=== PATIENT | female | born 1960 | race Caucasian/White ===

== ENCOUNTER 2018-09-17 06:50 | Emergency (ER) | payer BC ==
[~2018-09-17] VITALS: Ht 167.6 cm; Wt 90.7 kg
[2018-09-17] MEDS ORDERED: SUMA100T PO (07:03)
[2018-09-17] MEDS ORDERED: DIVA500T4 PO (07:03)
[2018-09-17] MEDS ORDERED: AMLO10TA4 PO (07:03)
[2018-09-17] MEDS ORDERED: GABA-536 PO (07:03)
[2018-09-17] MEDS ORDERED: LOSA100T31 PO (07:03)
[2018-09-17] MEDS ORDERED: PROP160C2 PO (07:03)
[2018-09-17] MEDS ORDERED: GABA800T11 PO (07:03)
[2018-09-17] MEDS ORDERED: FUROSEMIDE 20 MG TABLET ONE (07:24)
--- NOTE | 2018-09-17 07:28 | NUR ---
Patient discharged to home in stable conditon & steady gait. Written and verbal after care instructions given to patient. Patient verbalizes understanding of instructions.
[2018-09-17] MEDS ORDERED: FUROSEMIDE 20 MG TABLET PO ONE (07:30)
== END 2018-09-17 07:28 | disposition home or self-care (01) ==
LOC: ER 07:10
DX: M54.9 Dorsalgia, unspecified (principal); R60.9 Edema, unspecified; K21.9 Gastro-esophageal reflux disease without esophagitis; E78.5 Hyperlipidemia, unspecified; Z88.8 Allergy status to other drugs, medicaments and biological substances; Z79.899 Other long term (current) drug therapy
CPT/HCPCS: A4663

== ENCOUNTER 2018-09-29 09:35 | Emergency (ER) | payer BC ==
[~2018-09-29] VITALS: Ht 172.7 cm; Wt 95.3 kg
[~2018-09-29 09:35] MED LIST: AMLO10TA4 PO; DIVA500T4 PO; GABA-536 PO; GABA800T11 PO; LOSA100T31 PO; PROP160C2 PO; SUMA100T PO
[2018-09-29] MEDS ORDERED: diphenhydrAMINE 50 MG/1 ML VIAL IM ONE (10:00)
[2018-09-29] MEDS ORDERED: QUET400T PO (10:03)
[2018-09-29] MEDS ORDERED: PRAM0.253 PO (10:03)
[2018-09-29] MEDS ORDERED: THIA100T13 PO (10:03)
[2018-09-29] MEDS ORDERED: TRAZ-182 PO (10:03)
[2018-09-29] MEDS ORDERED: DEXT1CAP3 PO (10:03)
[2018-09-29] MEDS ORDERED: ALBU18HF2 IH (10:03)
[2018-09-29] MEDS ORDERED: FURO-152 PO (10:03)
[2018-09-29] MEDS ORDERED: VITA1TAB20 PO (10:03)
[2018-09-29] MEDS ORDERED: LORA1TAB PO (10:03)
[2018-09-29] MEDS ORDERED: diphenhydrAMINE 50 MG/1 ML VIAL ONE (10:03)
[2018-09-29] MEDS ORDERED: CHOL10002 PO (10:03)
[2018-09-29 10:22] LABS: BASOPHILS % (AUTO) 0.4 % (0.0-2.0); EOSINOPHILS # (AUTO) 0.2 K/uL (0.0-0.7); EOSINOPHILS % (AUTO) 3.5 % (0.0-7.0); HEMATOCRIT 37.1 % (31.2-41.9); HEMOGLOBIN 12.3 g/dL (10.9-14.3); LYMPHOCYTES # (AUTO) 1.8 K/uL (20.0-40.0); LYMPHOCYTES % (AUTO) 30.2 % (20.5-51.5); MEAN CORPUSCULAR HEMOGLOBIN 27.8 uug (24.7-32.8); MEAN CORPUSCULAR HGB CONC 33 g/dL (32.3-35.6); MEAN CORPUSCULAR VOLUME 83.7 fL (75.5-95.3); MONOCYTES # (AUTO) 0.6 K/uL (2.0-10.0); MONOCYTES % (AUTO) 10.9 % (0.0-11.0); NEUTROPHILS # (AUTO) 3.2 K/uL (1.8-8.9); PLATELET COUNT (AUTO) 184 K/uL (179-408); RED BLOOD CELL COUNT(AUTO) 4.44 MIL/uL (3.63-4.92); WHITE BLOOD COUNT (AUTO) 5.8 K/uL (3.8-11.8)
--- NOTE | 2018-09-29 10:22 | NUR ---
PATIENT IS AWAKE AND ALERT. PLACED ON A MONITOR. C/O LEG CRAMPS
[2018-09-29 10:31] LABS: CREATININE 0.8 mg/dL (0.6-1.3); POTASSIUM 3.1 mmol/L (3.5-5.1)
[2018-09-29 10:37] LABS: BILIRUBIN,TOTAL 0.5 mg/dL (0.2-1.0); TOTAL PROTEIN, SERUM 6.4 g/dL (6.4-8.2)
[2018-09-29] MEDS ORDERED: POTASSIUM BICARBONATE/CIT AC 25 MEQ TABLET.EFF PO ONE (10:45)
[2018-09-29] MEDS ORDERED: POTASSIUM BICARBONATE/CIT AC 25 MEQ TABLET.EFF ONE (10:45)
[2018-09-29] MEDS ORDERED: HYDROCODONE/APAP 5-325MG TABLET ONE (11:07)
[2018-09-29] MEDS ORDERED: HYDROCODONE/APAP 5-325MG TABLET PO ONE (11:15)
--- NOTE | 2018-09-29 12:01 | NUR ---
PATIENT STATES PAIN HAS DIMINISHED. PATIENT STATES SHE UNDERSTANDS THAT SHE CANNOT DRIVE WHILEO N BENADRYL AND NORCO (AND SIMILAR MEDS). SHE STATES SHE HAS [facility] AND WILL CALL [facility]. DC, RX (INCLUDING ALL PRECAUTIONS) AND FOLLOW UP INSTRUCTIONS GIVEN AND EXPLAINED TO PATIENT WHO STATES SHE UNDERSTANDS ALL INSTRUCTIONS.
[2018-09-29 12:03] VITALS: BP 138/84
== END 2018-09-29 12:04 | disposition home or self-care (01) ==
LOC: ER 09:35
DX: M79.604 Pain in right leg (principal); M79.605 Pain in left leg; M79.601 Pain in right arm; M79.602 Pain in left arm; G25.71 Drug induced akathisia; G25.9 Extrapyramidal and movement disorder, unspecified; K21.9 Gastro-esophageal reflux disease without esophagitis; E78.5 Hyperlipidemia, unspecified; Z90.49 Acquired absence of other specified parts of digestive tract; Z88.8 Allergy status to other drugs, medicaments and biological substances; Z79.899 Other long term (current) drug therapy
CPT/HCPCS: 36415; 80053; 80164; 82550; 85025; 96372; 99283; J1200; A4663

== ENCOUNTER 2018-10-20 12:34 | Emergency (ER) | payer BC ==
[~2018-10-20] VITALS: Ht 170.2 cm; Wt 90.7 kg
[~2018-10-20 12:34] MED LIST changes: +ALBU18HF2 IH; +CHOL10002 PO; +DEXT1CAP3 PO; +FURO-152 PO; -GABA-536 PO; +LORA1TAB PO; +PRAM0.253 PO; +QUET400T PO; +THIA100T13 PO; +TRAZ-182 PO; +VITA1TAB20 PO
[2018-10-20] MEDS ORDERED: ONDANSETRON IV *ER 4 MG/2 ML VIAL IM ONE (13:30)
[2018-10-20] MEDS ORDERED: diphenhydrAMINE 50 MG/1 ML VIAL IM ONE (13:30)
[2018-10-20] MEDS ORDERED: KETOROLAC TROMETHAMINE 60 MG INJ IM ONE ×2 (13:30→13:39)
[2018-10-20] MEDS ORDERED: diphenhydrAMINE 50 MG/1 ML VIAL ONE (13:39)
[2018-10-20] MEDS ORDERED: ONDANSETRON 4 MG/2 ML VIAL ONE (13:39)
--- NOTE | 2018-10-20 13:41 | NUR ---
PT REFUSING THE IM MEDICINE, REQUESTING IV ADMINISTRATION. MD NOTIFIED.
[2018-10-20] MEDS ORDERED: diphenhydrAMINE 50 MG/1 ML VIAL IV ONE (14:00)
[2018-10-20] MEDS ORDERED: ONDANSETRON IV *ER 4 MG/2 ML VIAL IV ONE (14:00)
[2018-10-20] MEDS ORDERED: KETOROLAC TROMETHAMINE 30 MG INJ IVP ONE (14:00)
[2018-10-20] MEDS ORDERED: KETOROLAC TROMETHAMINE 30 MG INJ ONE (14:01)
--- NOTE | 2018-10-20 16:02 | NUR ---
Patient discharged to home in stable conditon. Written and verbal after care instructions given. Patient verbalizes understanding of instructions.
== END 2018-10-20 16:04 | disposition home or self-care (01) ==
LOC: ER 12:34
DX: G43.909 Migraine, unspecified, not intractable, without status migrainosus (principal); K21.9 Gastro-esophageal reflux disease without esophagitis; E78.5 Hyperlipidemia, unspecified; Z90.49 Acquired absence of other specified parts of digestive tract; Z79.899 Other long term (current) drug therapy
CPT/HCPCS: 96374; 96375; 99283; J1200; J1885; J2405; A4663